=== PATIENT | female | born 1990 | race Two or more races ===

== ENCOUNTER 2024-03-23 05:00 | Observation (INO) | payer MEDICARE, MEDICAID, SELFPAY ==
[2024-03-23 05:05] VITALS: BP 106/67; PULSE 84; RESP 16; RESP 98; TEMP 36.6
[2024-03-23 05:10] VITALS: RESP 16; TEMP 36.6; O2SAT 98; BMI 41.1
[2024-03-23 05:15] VITALS: BP 106/67; PULSE 84; PULSE 93; O2SAT 98
== END 2024-03-23 06:30 | disposition home or self-care (01) ==
PROVIDERS: Admitting Provider Specialist; Visit Provider Specialist
DX: Z34.83 Encounter for supervision of other normal pregnancy, third trimester (principal); Z3A.38 38 weeks gestation of pregnancy
CPT/HCPCS: 59025; 59899; G0378

== ENCOUNTER 2024-03-25 21:59 | Inpatient (IN) | payer MEDICARE, MEDICAID, SELFPAY ==
[2024-03-25 22:08] VITALS: BP 108/70; PULSE 78; RESP 17; RESP 99; TEMP 36.8
[2024-03-25 22:27] VITALS: BMI 40.0
[2024-03-25 22:38] VITALS: BP 131/72; PULSE 74
[2024-03-25 23:02] LABS: Basophils % (Auto) 0 % (0-2.5); Eosinophils # (Auto) 0.1 Thou/mm3 (0.0-0.5); Eosinophils % (Auto) 1 % (0-10); Hematocrit 35.7 % (36.0-46.0); Hemoglobin 12.3 g/dL (12.0-16.0); Immature Granulocytes % (Auto) 0 % (0-0); Immature Granulocytes Auto 0.03 Thou/mm3 (0.00-0.00); Lymphocytes # (Auto) 1.6 Thou/mm3 (1.0-4.8); Lymphocytes % (Auto) 13 % (10-50); Mean Corpuscular HGB Conc 34.5 g/dl (31.0-37.0); Mean Corpuscular Hemoglobin 30.4 pg (25.0-35.0); Mean Corpuscular Volume 88 fL (80-100); Monocytes # (Auto) 0.9 Thou/mm3 (0.0-0.8); Monocytes % (Auto) 7 % (0-12); Neutrophils # (Auto) 9.9 Thou/mm3 (1.8-7.7); Neutrophils % (Auto) 79 % (37-80); Nucleated Red Blood Cell % 0 /100 WBC (0); Platelet Count 182 Thou/mm3 (140-440); RDW Standard Deviation 42.5 fL (36.4-46.3); Red Blood Count 4.05 Miln/mm3 (4.00-5.20); White Blood Count 12.4 Thou/mm3 (3.6-11.0)
--- NOTE | 2024-03-25 23:15 | PD.LDHP ---
Documentation for date of: 03/25/24 OB Labor/Induct. HPI History of Present Illness History of present illness: H and P dictated on the STAT line #9 in Nuance : [id number] Meds Home Medications and Allergies Home Medications ?Medication ?Instructions ?Recorded ?Confirmed ?Type vitamins no.144-folic 1 tab PO DAILY 04/01/20 03/23/24 History acid 400 mcg chewable tablet () Allergies Allergy/AdvReac Type Severity Reaction Status Date / Time No Known Allergies Allergy Verified 03/23/24 05:41 OB Exam Physical Exam Vital signs: Temp Pulse Resp BP 98.2 F 74 17 131/72 H 03/25/24 22:08 03/25/24 22:38 03/25/24 22:08 03/25/24 22:38 OB Results Labs 03/25/24 22:35 Labs: Short CBC 03/25/24 Range/Units 22:35 WBC 12.4 H (3.6-11.0) Thou/mm3 Hgb 12.3 (12.0-16.0) g/dL Hct 35.7 L (36.0-46.0) % Plt Count 182 (140-440) Thou/mm3
[2024-03-25 23:26] VITALS: BP 125/79; PULSE 76
[2024-03-25 23:58] VITALS: BP 122/73; PULSE 96
[2024-03-26] VITALS (27 sets, daily range): BP systolic 104–146; BP diastolic 64–88; PULSE 56–95; RESP 14–28; TEMP 36.3–37.1; O2SAT 97–100
[2024-03-26] MEDS: OXYTOCIN in NS 20 units 20 UNIT/1,000 ML BAG 125 UNIT IV ×3 (00:02→21:19)
[2024-03-26] MEDS: BENZO/LANO/ALOE (Dermoplast) 60 GM CAN 1 SPRAY TOP (00:12)
[2024-03-26 01:01] LABS: Syphilis Nonreactive (Nonreactive)
--- NOTE | 2024-03-26 02:20 | SUR.PHASEI ---
Addendum entered by Kaylie Díaz RN 03/26/24 03:45: bakri balloon in place with JOSE drain Original Note: 0220: pt received from OR via yoana. received report from KALEY Ernandez and Dr. Turner. pt alert and oriented x3. no c/o pain or discomfort. no s/s of resp. distress or discomfort. pelayo cath in place with light yellow urine out. bacari balloon in place with JOSE drain. minimal amount of bleeding noted from leandro-pad.
--- NOTE | 2024-03-26 02:32 | PD.LDDS ---
DS: Providers Provider Date of admission: 03/25/24 22:28 Primary care physician: Physician No Primary/Family Admitting Provider: Theo Myers MD Attending Provider on Admission: Theo Myers MD Attending Provider on DC: Theo Myers MD Discharging Provider: Theo Myers MD DS: Diagnosis Problem List Completed Was Problem List Reviewed/Reconciled?: Yes Summary/Hosp Course Brief History: H and P dictated on the STAT line #9 in Nuance : [id number] Peripartum Data Procedures: Procedures Operation Date: 03/26/24 01:45 Actual Procedure Side Surgeon p Dilatation & Curettage Theo Myers MD Time Spent with Patient Time attestation: Total time spent providing and/or coordinating discharge services: Exam Vital Signs Temp Pulse Resp BP 98.4 F 68 17 116/68 03/26/24 01:10 03/26/24 01:06 03/26/24 01:10 03/26/24 01:06 Discharge Plan Plan Patient Disposition: HOME (Self Care) Patient condition on transfer: Stable Prescriptions/Referrals Prescriptions/Med Rec: New ibuprofen 600 mg tablet 600 mg PO Q6H PRN (Reason: pain) Qty: 30 0RF potassium chloride [K-Tab] 20 mEq tablet extended release 20 meq PO BID Qty: 30 0RF magnesium oxide 400 mg (241.3 mg magnesium) tablet 400 mg PO QDAY Qty: 7 0RF No Action 400 mcg Tablet,Chewable 1 tab PO DAILY Referrals: No Primary/Family,Physician [Primary Care Provider] - Patient/Caregiver Discharge Instructions Discharge Activity: activity as tolerated Print Language: Belarusian Stand Alone Forms: Michelle Award Info., Patient Portal Info Letter Discharge Order Discharge Orders: Discharge (Routine); Ordered 03/28/24 Ordered By: Theo Myers Planned Discharge Date 03/28/24
--- NOTE | 2024-03-26 02:37 | ESOP_ITS ---
RE: LIS GARCIA : 1990 DATE OF OPERATION: 03/26/2024 PREOPERATIVE DIAGNOSIS: Retained placenta, status post normal vaginal delivery. POSTOPERATIVE DIAGNOSES: 1. Retained placenta, status post normal vaginal delivery. 2. Uterine atony. 3. Hemorrhage PROCEDURE PERFORMED: 1. Manual placental removal. 2. Uterine curettage. 3. Bakri balloon placement. SURGEON: Theo Myers DO EMOTIONALLY IMPAIRED TEACHER: None. ANESTHESIA: General. ANESTHESIOLOGIST: Dr. Turner. ESTIMATED BLOOD LOSS: 1200 mL COMPLICATIONS: hemorrhage. PATHOLOGY: Placenta. FINDINGS: A firmly adherent posterior intrauterine placenta, removed manually, complete and intact. Uterine atony with significant profuse bleeding after placental removal, requiring Bakri balloon placement with 400 mL of normal saline. DESCRIPTION OF PROCEDURE: After appropriate informed consent was obtained, the patient was made aware of the risks, complications, alternatives, and benefits of the proposed procedure, she was taken to the operating room where she underwent induction of general anesthesia. She was placed in the dorsal lithotomy position. She was prepped and draped in the usual sterile fashion. Timeout was performed. The patient underwent exam under anesthesia. The placenta was manually removed, complete and intact. The uterine cavity was curetted with a banjo curette. The patient despite uterotonics, had significant atony of the uterus with profuse bleeding, requiring placement of a Bakri balloon. The Bakri balloon was placed in the uterine cavity with 400 mL of saline and this served to firm the uterus and prevent the excessive bleeding. Two units of packed red blood cells were ordered intraoperatively. The patient was reversed from general anesthesia and after More catheter was placed, Bakri balloon tubing was affixed to JOSE drain. The patient was reversed from general anesthesia and transferred to the recovery room in stable condition. She tolerated the procedure well. Counts were correct. DT: 02:21:11 TT: 02:35:00 Ref: [id number] - TID: [id number] MTDD
--- NOTE | 2024-03-26 02:50 | SUR.PHASEI ---
0250: tolerated ice chips well.
--- NOTE | 2024-03-26 03:11 | SUR.PHASEI ---
Report given to KALEY Martini
--- NOTE | 2024-03-26 03:28 | SUR.PHASEI ---
0328: pt transfer to room 463 via bed. pt alert and oriented x3. no c/o pain or discomfort. no s/s of resp. distress or discomfort. pelayo cath in place with light yellow urine out. bakri balloon in place with JOSE drain. scant amount of bleeding noted from leandro-pad.
--- NOTE | 2024-03-26 04:20 | PC.NURSE ---
@0310 report received from KALEY Lott in OR on pt status. Per KALEY Lott, pt underwent manual extraction of placenta in OR. Pt hemorrhaged and had a total EBL of 1500 post-op. Pt had bakri balloon placed in to prevent further bleeding. Per Kaylie, KALEY pt will need 2nd bag of blood once back in unit. Received pt to floor around 0350, pt AxOx4. Pt states she started coughing postop, with feeling of need to expectorate mucus. BP diastolic slightly elevated around 130s, systolic WNL. Other vital signs WNL pre-blood transfusion and 30mins after. Pt does not c/o adverse effects.
[2024-03-26] MEDS: CEFAZOLIN IV (08:16)
[2024-03-26] MEDS: SODIUM CHLORIDE 0.9% IV (08:16)
[2024-03-26] MEDS: METHYLERGONOVINE 0.2 MG TABLET PO ×3 (08:17→21:19)
[2024-03-26 10:26] LABS: Basophils % (Auto) 0 % (0-2.5); Eosinophils % (Auto) 0 % (0-10); Hematocrit 34.1 % (36.0-46.0); Hemoglobin 11.8 g/dL (12.0-16.0); Immature Granulocytes % (Auto) 1 % (0-0); Immature Granulocytes Auto 0.11 Thou/mm3 (0.00-0.00); Lymphocytes % (Auto) 5 % (10-50); Mean Corpuscular HGB Conc 34.6 g/dl (31.0-37.0); Mean Corpuscular Hemoglobin 29.6 pg (25.0-35.0); Mean Corpuscular Volume 86 fL (80-100); Monocytes # (Auto) 0.5 Thou/mm3 (0.0-0.8); Monocytes % (Auto) 3 % (0-12); Neutrophils # (Auto) 17.1 Thou/mm3 (1.8-7.7); Neutrophils % (Auto) 91 % (37-80); Nucleated Red Blood Cell % 0 /100 WBC (0); Platelet Count 153 Thou/mm3 (140-440); RDW Standard Deviation 41.4 fL (36.4-46.3); Red Blood Count 3.99 Miln/mm3 (4.00-5.20); White Blood Count 18.7 Thou/mm3 (3.6-11.0)
--- NOTE | 2024-03-26 13:18 | ESPR_ITS ---
RE: LIS GARCIA : 1990 DATE OF SERVICE: 03/26/2024 SUBJECTIVE: Postop day #1, day #1. The patient denies any problem or complaint. She has got adequate urine output with More catheter in place. She is draining bloody fluid through the Bakri balloon drainage port in amounts that are not excessive. She denies any vaginal bleeding. She denies any dizziness or lightheadedness. She denies any chest pain, palpitations, shortness of breath or lower extremity pain or swelling. OBJECTIVE: Vital Signs: Blood pressure 118/75, heart rate 60, respirations 18, temperature is 98.2. HEENT: Oropharynx and sclerae are clear. Lungs: Clear to auscultation bilaterally. Heart: Regular rate and rhythm. Abdomen: Fundus is firm. Bakri balloon in place. No vaginal bleeding noted. More catheter draining clear yellow urine. Extremities: Nontender or edema. ASSESSMENT AND PLAN: 1. Postop day #1, status post exam under anesthesia, manual placenta removal, uterine curettage and placement of Bakri balloon for uterine atony and hemorrhage, status post transfusion of 2 units packed red blood cells. Plan check post transfusion CBC. Continue prophylactic antibiotics to prevent endometritis as long as Bakri balloon is in place. Plan to remove Bakri balloon tomorrow morning. 2. day #1, status post spontaneous vaginal delivery. I discussed with the patient the nature of her condition, intraoperative findings, expectation for recovery. All questions answered. DT: 11::18 TT: 13:07:00 Ref: [id number] - TID: [id number]
[2024-03-26] MEDS: ceFAZolin/D5W 2 GM IV 2 GM/100 ML BAG IV ×2 (14:34→22:42)
--- NOTE | 2024-03-26 15:31 | PC.NURSE ---
[address] Myers during rounds, stated to continue iv pitocin 125ml/hr until tomorrow morning when he comes in to remove the bakri balloon.
--- NOTE | 2024-03-26 17:54 | PC.NURSE ---
[address] Myers to inform him of patient feeling tingling and numbness in both hands, causing contraction of fingers in right hand. Dr ordered cbc, comprehensive metabolic panel, and nothing to be administered into her right forearm iv. No mental changes noted in patient, vitals stable.
[2024-03-26 18:58] LABS: Basophils % (Auto) 0 % (0-2.5); Eosinophils % (Auto) 0 % (0-10); Hematocrit 31.3 % (36.0-46.0); Hemoglobin 10.9 g/dL (12.0-16.0); Immature Granulocytes % (Auto) 0 % (0-0); Immature Granulocytes Auto 0.04 Thou/mm3 (0.00-0.00); Lymphocytes # (Auto) 2.1 Thou/mm3 (1.0-4.8); Lymphocytes % (Auto) 13 % (10-50); Mean Corpuscular HGB Conc 34.8 g/dl (31.0-37.0); Mean Corpuscular Hemoglobin 30.3 pg (25.0-35.0); Mean Corpuscular Volume 87 fL (80-100); Monocytes # (Auto) 0.8 Thou/mm3 (0.0-0.8); Monocytes % (Auto) 5 % (0-12); Neutrophils # (Auto) 13.3 Thou/mm3 (1.8-7.7); Neutrophils % (Auto) 82 % (37-80); Nucleated Red Blood Cell % 0 /100 WBC (0); Platelet Count 142 Thou/mm3 (140-440); RDW Standard Deviation 42.4 fL (36.4-46.3); White Blood Count 16.3 Thou/mm3 (3.6-11.0)
[2024-03-26 19:25] LABS: Alanine Aminotransferase 10 U/L (10-49); Albumin, Serum 3.1 gm/dL (3.5-5.0); Albumin/Globulin Ratio 1.3 (1.2-2.2); Alkaline Phosphatase 126 U/L (46-116); Anion Gap 10 (7-16); Aspartate Amino Transferase 29 U/L (0-34); BUN/Creatinine Ratio 10 Ratio (12-20); Bilirubin,Total 0.4 mg/dL (0.3-1.2); Blood Urea Nitrogen < 5 mg/dL (9-23); Calcium 7.9 mg/dL (8.3-10.6); Calcium (Corrected) 8.6 mg/dL (8.5-10.1); Carbon Dioxide 24.9 mMol/L (20.0-31.0); Chloride 105 mMol/L (98-107); Creatinine (Component) 0.5 mg/dL (0.6-1.3); Globulin 2.4 gm/dL (2.3-3.5); Glucose 83 mg/dL (74-106); Magnesium 1.2 mg/dL (1.6-2.6); Osmolality,Calculated 275 (275-295); Sodium 140 mMol/L (136-145); Total Protein 5.5 gm/dL (5.7-8.2); eGFR > 60 See Note
[2024-03-26 19:27] LABS: Potassium 2.4 mMol/L (3.4-5.1)
--- NOTE | 2024-03-26 19:59 | PD.LDDELS ---
Data (Larios) Data Hx Section: No : 3 Para: 2 Term: 1 : 0 : 1 Delivery Data (Larios) Labor Data ROM Date: 03/25/24 ROM Time: 23:07 Rupture Type: AROM Amniotic Fluid: Thin Meconium Delivery Data EDC: 04/01/24 EDC calculated by:: LMP/early US confirmation Labor Onset Stage 1 Date: 03/25/24 Labor Onset Stage 1 Time: 11:00 Labor Onset Stage 2 Date: 03/25/24 Labor Onset Stage 2 Time: 23:53 Delivery Date: 03/26/24 Delivery Time: 23:59 Gestational age (weeks): 39 Gestational age (days): 0 Placenta Delivery Date: 03/26/24 Placenta Delivery Time: 02:05 Delivered by: Theo Myers Delivery nurse: Melyssa Salas Other staff at delivery: 2nd Nurse Other staff at delivery: Maria Luisa Cobb Delivery Method Delivery: Vaginal Delivery Type: Spontaneous Presentation: Vertex Position: OA Anesthesia Type Primary Anesthesia: None Placenta Placenta Delivery: Manual Placenta Cultures Obtained: No Placenta Sent for Examination: Yes Cord Sample: Cord Blood Obtained EBL Estimated blood loss (ml): 300 Umbilical Cord Placenta/Cord Complication: Retained Placenta Umbilical Vessels: 3 Additional Procedures Exam under anesthesia Manual placental removal Uterine curettage Placement of Bakri Balloon. Complications Complications: Hemorrhage Uterine atony. [place] Data (Larios) [place] Data Gender: Male Weight Grams: 3050 1 Minute Total: 9 5 Minute Total: 9
--- NOTE | 2024-03-26 20:08 | EKG_ITS ---
[facility] Test Date: 2024-03-26 Pat Name: LIS [facility]ARCIA [facility] Electronic Assembler: JESUS ALBERTO : 1990 Requested By: Theo Felix Order Number: [id number] Reading MD: Theo Felix Measurements Intervals Natalia Rate: 67 P: 40 IL: 171 QRS: -19 QRSD: 90 T: 5 QT: 379 QTc: 400 Interpretive Statements SINUS RHYTHM No previous ECG available for comparison /store/S0/[id number]/ecg/[id number].pdf
--- NOTE | 2024-03-26 20:14 | PD.LDPPPRG ---
Subjective Subjective Interval history: Complains of muscle spasms in left hand. Denies chest pain or palpitations or shortness of breath or dizziness or lightheadedness. K+ 2.4 and Magnesium 1.2. Exam Vital Signs Temp Pulse Resp BP Pulse Ox O2 Del Method O2 Flow Rate 98.4 F 63 16 112/72 100 Nasal Cannula 4 03/26/24 15:28 03/26/24 15:28 03/26/24 15:28 03/26/24 15:28 03/26/24 15:28 03/26/24 15:28 03/26/24 15:28 Routine Respiratory Exam Comments: CTA B/L Routine Cardiovascular Exam Comments: RRR Routine Abdominal Exam Comments: Fundus firm Bakri balloon in place Nontender Routine Extremities Exam Comments: Nontender Routine Psychiatric Exam Comments: alert and oriented Objective Labs 03/26/24 18:31 03/26/24 18:31 Labs: Laboratory Results - last 24 hr 03/25/24 03/26/24 03/26/24 22:35 09:56 18:31 WBC 12.4 H 18.7 H D 16.3 H RBC 4.05 3.99 L 3.60 L Hgb 12.3 11.8 L 10.9 L Hct 35.7 L 34.1 L 31.3 L MCV 88 86 87 MCH 30.4 29.6 30.3 MCHC 34.5 34.6 34.8 RDW Std Deviation 42.5 41.4 42.4 Plt Count 182 153 142 Neut % (Auto) 79 91 H 82 H Lymph % (Auto) 13 5 L 13 [place] % (Auto) 7 3 5 Eos % (Auto) 1 0 0 Baso % (Auto) 0 0 0 Neut # (Auto) 9.9 H 17.1 H 13.3 H Lymph # (Auto) 1.6 1.0 2.1 [place] # (Auto) 0.9 H 0.5 0.8 Eos # (Auto) 0.1 0.0 0.0 Baso # (Auto) 0.0 0.0 0.0 Immature Gran # (Auto) 0.03 H 0.11 H 0.04 H Absolute Nucleated RBC 0.00 0.00 0.00 Immature Gran % 0 1 H 0 Nucleated RBC % 0 0 0 Sodium 140 Potassium 2.4 L* Chloride 105 Carbon Dioxide 24.9 Anion Gap 10 BUN < 5 L Creatinine 0.5 L Estim Creat Clear Calc 183.0 eGFR > 60 BUN/Creatinine Ratio 10 L Glucose 83 Calculated Osmolality 275 Calcium 7.9 L Corrected Calcium 8.6 Magnesium 1.2 L Total Bilirubin 0.4 AST 29 ALT 10 Alkaline Phosphatase 126 H Total Protein 5.5 L Albumin 3.1 L Globulin 2.4 Albumin/Globulin Ratio 1.3 Syphilis Serology Nonreactive Blood Type A Positive Antibody Screen NEGATIVE Crossmatch See Detail Blood Bank Wristband ID Yes Assessment & Plan Problem List (1) Hypokalemia: Status: Acute Assessment and plan: Potassium replacement : KCL 40 mEq po x one and KCL 30 mEq IV (via 10 mEq per hour x 3) academic success coordinator for Cardiac Arrhythmias in Telemetry Unit Repeat K level in 4 hours. (2) Hypomagnesemia: Status: Acute Assessment and plan: Magnesium sulfate 2g IV Check Magnesium level in 4 hours. Time Spent With Patient Time: Total time spent is greater than 50% in coordination of care (as documented) at patient's floor/unit and/or counseling patient:
[2024-03-26] MEDS: POTASSIUM CHLORIDE 20 mEq TABCR 40 MEQ PO (20:39)
[2024-03-26] MEDS: Magnesium Sulfate 2 GM Ivpb 2 GM/50 ML BAG IV (21:04)
[2024-03-26] MEDS: POTASSIUM CHL 10 mEq IVPB 10 MEQ/100 ML BAG 100 MEQ IV ×2 (22:21→23:09)
--- NOTE | 2024-03-26 22:30 | PC.NURSE ---
patient arrived to floor, alert and oriented, on strict bedrest, with bakri balloon with ami drain with minimal drainage of blood noted. pitocin running and magnesium.
[2024-03-27] VITALS: BP 115/68; PULSE 67; RESP 19; TEMP 36.6; O2SAT 97
[2024-03-27] MEDS: POTASSIUM CHL 10 mEq IVPB 10 MEQ/100 ML BAG 100 MEQ IV ×2 (00:13→23:49)
[2024-03-27 01:03] LABS: Magnesium 1.6 mg/dL (1.6-2.6); Potassium 2.9 mMol/L (3.4-5.1)
--- NOTE | 2024-03-27 01:20 | PC.NURSE ---
notified Dr. Myers of patients potassium 2.9. new orders for potassium replacement and am labs and to consult hospitalist.
--- NOTE | 2024-03-27 01:29 | PC.NURSE ---
notified Dr. Mederos of [facility] on this patient
--- NOTE | 2024-03-27 01:44 | PD.RESCONSUL ---
HPI Data of Consult Requesting Physician: Theo Myers MD Admitting Provider: Theo Myers MD Attending Provider: Theo Myers MD Primary Care Provider: Physician No Primary/Family Consult Narrative Reason for consult: Hypokalemia History of present illness: Patient is a 33-year-old female now A1 with no significant past medical history who was admitted to L&D on 03/25/2024. She had a normal spontaneous vaginal delivery of a male single at 39 weeks on 03/25/2024 at 23:59. Delivery was complicated by retained placenta and uterine atony. She underwent manual extraction of placenta, uterine curettage, and placement of Bakri balloon in the OR under anesthesia. Patient had hemorrhage with estimated blood loss of 1200 mL. She received 1 unit PRBC. While recovering in the L&D unit patient started experiencing numbness, tingling, and cramps of bilateral hands, CMP was ordered and patient was found to have hypokalemia of 2.4. Patient was transferred to the Telemetry unit for cardiac monitoring and electrolyte repletion. Patient has received 40 mEq PO, 30 mEq IV K and 2 gm IV Mag prior to consult. Patient has the Bakri balloon and JOSE drain in place that is planned to be removed tomorrow. Patient at this time is denying any pain, and reports improvement in numbness, tingling, and cramps. The hospitalist team was consulted for further management of hypokalemia. Vitals at this time include BP 115/68, HR 70s in normal sinus rhythm, RR 15, Temp 97.9, saturating 99% on room air. Labs include potassium 2.4->2.9, WBC 16.3, Hgb 10.9 Review of Systems Review of systems otherwise negative except what is mentioned above. cc:: cc: Theo Myers MD Past Medical History Past Medical History Comments PMH COMMENT: Past Medical History: None Family History: No known family history of delivery complications Surgical History: Appendectomy age 8 Social History: Denies history of tobacco use, denies current alcohol use, prior history of marijuana use but stopped before Current Medications: vitamin Allergies: No known drug allergies Exam Vital Signs Temp Pulse Resp BP Pulse Ox O2 Del Method O2 Flow Rate 97.9 F 67 19 115/68 97 Room Air 4 03/27/24 00:00 03/27/24 00:00 03/27/24 00:00 03/27/24 00:00 03/27/24 00:00 03/27/24 00:00 03/26/24 15:28 Narrative Exam Physical Exam General: Asleep, but arousable to voice, and in no acute distress. Conversational and non-toxic appearing. HEENT: Normocephalic, atraumatic, mucous membranes moist. Heart: Regular rate and rhythm, no murmurs. Lungs: Clear to auscultation with no wheezing or crackles. Abdomen: Soft, distended but nontender, positive bowel sounds. ?No guarding or rebound tenderness. : JOSE drain in place with approximately 15 mL of serosanguinous fluid output in about 6 hours. Neurologic: Alert and oriented x3, no gross neurological deficit, and patient able to move all 4 extremities. Extremities: No edema. Skin: No rash or ecchymoses. Results Labs 03/26/24 18:31 03/27/24 00:19 Labs: Short CBC 03/26/24 03/26/24 Range/Units 09:56 18:31 WBC 18.7 H D 16.3 H (3.6-11.0) Thou/mm3 Hgb 11.8 L 10.9 L (12.0-16.0) g/dL Hct 34.1 L 31.3 L (36.0-46.0) % Plt Count 153 142 (140-440) Thou/mm3 BMP 03/26/24 03/27/24 18:31 00:19 Sodium 140 Potassium 2.4 L* 2.9 L D Chloride 105 Carbon Dioxide 24.9 BUN < 5 L Creatinine 0.5 L Glucose 83 Calcium 7.9 L Liver Function 03/26/24 Range/Units 18:31 Total Bilirubin 0.4 (0.3-1.2) mg/dL AST 29 (0-34) U/L ALT 10 (10-49) U/L Alkaline Phosphatase 126 H (46-116) U/L Albumin 3.1 L (3.5-5.0) gm/dL Quality Measures Quality Measures VTE prophylaxis Medications Home Medications and Allergies Home Medications ?Medication ?Instructions ?Recorded ?Confirmed ?Type vitamins no.144-folic 1 tab PO DAILY 04/01/20 03/25/24 History acid 400 mcg chewable tablet () Allergies Allergy/AdvReac Type Severity Reaction Status Date / Time No Known Allergies Allergy Verified 03/26/24 02:32 Visit Medications Acetaminophen (Acetaminophen 325 Mg Tablet) 325 mg PO Q4HR PRN PRN Reason: Patient rated pain 1 to 2 Stop: 04/25/24 06:28 Acetaminophen (Acetaminophen 325 Mg Tablet) 650 mg PO Q6HR PRN PRN Reason: Patient rated pain of 3 Stop: 04/25/24 06:28 Benzocaine (Benzo/Lano/Aloe (Dermoplast) 60 Gm Can) 1 spray TOP PRN PRN PRN Reason: PERINEAL DISCOMFORT Stop: 04/24/24 22:27 Last Admin: 03/26/24 00:12 Dose: 1 can Cyclobenzaprine HCl (Cyclobenzaprine 5 Mg Tablet) 5 mg PO TID PRN PRN Reason: MUSCLE SPASMS Stop: 04/25/24 17:58 Diphenoxylate HCl/Atropine (Diphenoxylate/Atrop Sulf 1 Tab) 1 tab PO Q6HR PRN PRN Reason: Diarrhea Stop: 04/25/24 02:21 Diphtheria/Tetanus/Acell Pertussis (Diphth,Pertuss(Acell),Tet Vac 0.5 Ml Vial) 0.5 ml IMi X1 PRN PRN Reason: SEE COMMENTS Tranexamic Acid (Tranexamic Acid Ivpb) 1,000 mg in 100 mls @ 200 mls/hr IV PRNMRX1 PRN PRN Reason: BLEEDING Oxytocin/Sodium Chloride (Pitocin 20 Units In Ns) 20 unit in 1,000 mls @ 125 mls/hr IV .Q8H [facility] Stop: 04/24/24 22:29 Last Admin: 03/26/24 21:19 Dose: 125 mls/hr Promethazine HCl 12.5 mg/ (Sodium Chloride) 50.5 mls @ 2.5 mls/min IM X1 PRN PRN Reason: NAUSEA OR VOMITING Lactated Ringer's (Lactated Ringers) 1,000 mls @ 100 mls/hr IV .Q10H [facility] Stop: 04/25/24 18:14 Cefazolin Sodium (Ancef 2gm Ivpb) 2 gm in 100 mls @ 200 mls/hr IV Q8HR [facility] Stop: 04/02/24 08:14 Last Infusion: 03/26/24 23:18 Dose: Infused Magnesium Sulfate (Magnesium Sulfate Ivpb) 4 gm in 50 mls @ 12.5 mls/hr IV X1 ONE Stop: 03/27/24 05:34 Potassium Chloride (Kcl Ivpb) 100 mls @ 100 mls/hr IV Q1HR [facility] Stop: 03/27/24 03:59 Magnesium Hydroxide (Milk Of Magnesia Susp 30 Ml Udc) 30 ml PO PRNMRX1 PRN PRN Reason: CONSTIPATION Stop: 04/25/24 06:28 Measles/Mumps/Rubella Vaccine Live (Measles, Mumps & Rubella Vacc 0.5 Ml Vial) 0.5 ml SCi X1 PRN PRN Reason: if non-immune or equivocal Methylergonovine Maleate (Methylergonovine 0.2 Mg Tablet) 0.2 mg PO TID UBALDO Stop: 03/27/24 05:00 Last Admin: 03/26/24 21:19 Dose: 0.2 mg Methylergonovine Maleate (Methylergonovine Inj 0.2 Mg/Ml Vial) 0.2 mg IM Q6HR PRN PRN Reason: Excessive bleeding Stop: 04/02/24 06:52 Methylergonovine Maleate (Methylergonovine 0.2 Mg Tablet) 0.2 mg PO Q6HR PRN PRN Reason: Excessive bleeding Stop: 04/02/24 06:28 Misoprostol (Misoprostol 200 Mcg Tablet) 800 mcg TN X1 PRN PRN Reason: BLEEDING Ondansetron HCl (Ondansetron Inj 2 Mg/Ml Inj 2 Ml) 4 mg IV X1 PRN PRN Reason: NAUSEA OR VOMITING Ondansetron HCl (Ondansetron Inj 2 Mg/Ml Inj 2 Ml) 4 mg IV Q6H PRN PRN Reason: NAUSEA OR VOMITING Stop: 04/25/24 06:28 Oxytocin (Oxytocin Inj 10 Unit/Ml Vial) 10 unit IM X1 PRN PRN Reason: After placenta delivers Simethicone (Simethicone 80 Mg Chew) 80 mg PO Q4HR PRN PRN Reason: GAS Stop: 04/25/24 06:28 Discontinued Medications Fentanyl Citrate (Fentanyl Cit Inj 50 Mcg/Ml Amp 2ml) 100 mcg IV Q1HR PRN PRN Reason: PAIN SCALE 4-6 (Moderate Stop: 03/30/24 22:27 Fentanyl Citrate (Fentanyl Cit Inj 50 Mcg/Ml Amp 2ml) 50 mcg IV Q5MIN PRN PRN Reason: PAIN SCALE 4-10(Mod-Sev Lactated Ringer's (Lactated Ringers) 500 mls @ 999 mls/hr IV .Q31M PRN PRN Reason: HR tracing (Per Policy) Stop: 04/24/24 22:27 Sodium Chloride (Ns) 1,000 mls @ 100 mls/hr IV .Q10H [facility] Stop: 04/24/24 22:29 Cefazolin Sodium (Ancef 2gm Ivpb) 2 gm in 100 mls @ 100 mls/hr IV X1 ONE Stop: 03/26/24 01:37 Oxytocin/Sodium Chloride (Pitocin 20 Units In Ns) 20 unit in 1,000 mls @ 125 mls/hr IV .Q8H [facility] Stop: 03/26/24 22:28 Cefazolin Sodium 2 gm/ Sodium (Chloride) 100 mls @ 100 mls/hr IV Q8HR [facility] Stop: 03/27/24 02:00 Cefazolin Sodium 2 gm/ Sodium (Chloride) 100 mls @ 100 mls/hr IV Q8HR [facility] Stop: 04/02/24 08:14 Last Infusion: 03/26/24 22:34 Dose: Infused Potassium Chloride (Kcl Ivpb) 10 meq in 100 mls @ 100 mls/hr IV Q1H [facility] Stop: 03/26/24 22:42 Last Infusion: 03/27/24 01:39 Dose: Infused Magnesium Sulfate (Magnesium Sulfate Ivpb) 2 gm in 50 mls @ 25 mls/hr IV X1 ONE Stop: 03/26/24 21:43 Last Infusion: 03/26/24 23:13 Dose: Infused Potassium Chloride (Kcl Ivpb) 100 mls @ 50 mls/hr IV Q2HR [facility] Stop: 03/27/24 05:59 Ibuprofen (Ibuprofen Tab 400 Mg Tablet) 800 mg PO X1 PRN PRN Reason: uterine cramping Lidocaine HCl (Lidocaine Hcl 1% 20 Ml Vial) 20 ml INFL X1 ONE Stop: 03/25/24 22:29 Methylergonovine Maleate (Methylergonovine Inj 0.2 Mg/Ml Vial) 0.2 mg IM X1 PRN PRN Reason: Excessive Bleeding Mineral Oil (Mineral Oil 30 Ml Udc) 30 ml TOP PRN PRN PRN Reason: To perineum for delivery. Stop: 04/24/24 22:27 Potassium Chloride (Potassium Chloride 20 Meq Tabcr) 40 meq PO X1 ONE Stop: 03/26/24 19:43 Last Admin: 03/26/24 20:39 Dose: 40 meq Potassium Chloride (Potassium Chloride 20 Meq Tabcr) 40 meq PO X1 ONE Stop: 03/27/24 01:39 Assessment & Plan Plan 33-year-old female A1 with no significant past medical history who was admitted to L&D on 03/25/2024 underwent normal spontaneous vaginal delivery of a male single at 39 weeks, which was complicated by retained placenta requiring manual extraction, uterine curettage, uterine atony, and hemorrhage. On 03/26/2024 patient was found to have potassium 2.4 and hospitalist team was consulted for continued management of hypokalemia and cardiac monitoring. #Hypokalemia #Hypomagnesemia On labs 03/26/2024 K 2.4, Mag 1.2, repeat K 2.9 and Mag 1.6 Patient has received so far 2 gm IV magnesium, 40 mEq PO potassium and 30 mEq IV potassium. Telemetry shows normal sinus rhythm with rate in the 70s. -Ordered additional 2 gm IV Mag -Ordered additional 20 mEq IV K -Ordered additional 40 mEq PO K -Repeat CMP and Mag in AM -Continuous telemetry monitoring # day 1 #Postoperative day 1 s/p manual placental removal, uterine curettage, and Bakri balloon placement #Acute blood loss anemia -Continue management per reworker Thank you for allowing us to participate in the care of this patient. Patient plan of care was discussed with the attending physician, Dr. Mederos. Antoinette Matias, PGY-2 Attending Provider Attestation/Addendum Pt was evaluated and plan formulated together with the housestaff team. I have reviewed the residents note above and agree with most of its content. Please refer to the residents note for additional details.
[2024-03-27] MEDS: POTASSIUM CHLORIDE 20 mEq TABCR 40 MEQ PO (01:48)
[2024-03-27] MEDS: POTASSIUM CHL 10 mEq IVPB 100 ML 100 MEQ IV ×2 (01:56→02:46)
[2024-03-27] MEDS: Magnesium Sulfate 2 GM Ivpb 2 GM/50 ML BAG IV (01:57)
[2024-03-27 04:00] VITALS: BP 117/69; PULSE 69; RESP 19; TEMP 36.4; O2SAT 98
[2024-03-27 05:23] VITALS: BMI 39.8
[2024-03-27] MEDS: ceFAZolin/D5W 2 GM IV 2 GM/100 ML BAG IV (05:28)
[2024-03-27 06:06] LABS: Basophils % (Auto) 0 % (0-2.5); Eosinophils # (Auto) 0.1 Thou/mm3 (0.0-0.5); Eosinophils % (Auto) 1 % (0-10); Hematocrit 30.4 % (36.0-46.0); Hemoglobin 10.4 g/dL (12.0-16.0); Immature Granulocytes % (Auto) 0 % (0-0); Immature Granulocytes Auto 0.05 Thou/mm3 (0.00-0.00); Lymphocytes # (Auto) 2.4 Thou/mm3 (1.0-4.8); Lymphocytes % (Auto) 22 % (10-50); Mean Corpuscular HGB Conc 34.2 g/dl (31.0-37.0); Mean Corpuscular Hemoglobin 30.3 pg (25.0-35.0); Mean Corpuscular Volume 89 fL (80-100); Monocytes # (Auto) 0.6 Thou/mm3 (0.0-0.8); Monocytes % (Auto) 5 % (0-12); Neutrophils % (Auto) 71 % (37-80); Nucleated Red Blood Cell % 0 /100 WBC (0); Platelet Count 139 Thou/mm3 (140-440); RDW Standard Deviation 43.4 fL (36.4-46.3); Red Blood Count 3.43 Miln/mm3 (4.00-5.20); White Blood Count 11.2 Thou/mm3 (3.6-11.0)
[2024-03-27] MEDS: OXYTOCIN in NS 20 units 20 UNIT/1,000 ML BAG 125 UNIT IV (06:20)
[2024-03-27 06:56] LABS: Alanine Aminotransferase 8 U/L (10-49); Albumin, Serum 2.9 gm/dL (3.5-5.0); Albumin/Globulin Ratio 1.4 (1.2-2.2); Alkaline Phosphatase 109 U/L (46-116); Anion Gap 10 (7-16); Aspartate Amino Transferase 21 U/L (0-34); BUN/Creatinine Ratio 10 Ratio (12-20); Bilirubin,Total 0.3 mg/dL (0.3-1.2); Blood Urea Nitrogen < 5 mg/dL (9-23); Calcium 7.5 mg/dL (8.3-10.6); Calcium (Corrected) 8.4 mg/dL (8.5-10.1); Carbon Dioxide 22.1 mMol/L (20.0-31.0); Chloride 108 mMol/L (98-107); Creatinine (Component) 0.5 mg/dL (0.6-1.3); Globulin 2.1 gm/dL (2.3-3.5); Glucose 69 mg/dL (74-106); Osmolality,Calculated 274 (275-295); Potassium 3.4 mMol/L (3.4-5.1); Sodium 140 mMol/L (136-145); eGFR > 60 See Note
[2024-03-27 08:00] VITALS: BP 131/87; PULSE 69; RESP 18; TEMP 36.1; O2SAT 95
[2024-03-27] MEDS: POTASSIUM CHLORIDE 20 mEq TABCR PO (08:25)
--- NOTE | 2024-03-27 10:38 | PC.NURSE ---
1000 Bakri Balloon removed by OB Lucia pt tolerated well. OB gave instructions to remove pelayo catheter after monitoring vaginal bleeding for 1 hour.
--- NOTE | 2024-03-27 12:41 | ESPR_ITS ---
RE: LIS GARCIA : 1990 DATE OF SERVICE: 03/27/2024 S: day #2, the patient denies any problems or complaints. She denies any vaginal bleeding. She denies any muscle spasms, palpitations, shortness of breath, dizziness, lightheadedness, or chest pain. She was in telemetry during the night due to potassium level of 2.4; however, she never demonstrated an arrhythmia and remained in sinus rhythm. Her potassium after supplementation returned 3.4 this morning and so she was transferred to the floor where she underwent removal of her Bakri balloon without complications. She has had no bleeding since the Bakri balloon has been removed. The patient also underwent magnesium replacement and her magnesium level is now in the normal range at 1.4. O: Vital Signs: Blood pressure is 131/87, heart rate 69, respirations 18, temperature 97.0, and pulse oximetry 95% on room air. Lungs: Clear to auscultation bilaterally. Heart: Regular rate and rhythm. Abdomen: Fundus is firm after removal of Bakri balloon. No vaginal bleeding seen. Extremities: Nontender. Laboratory Data: Hemoglobin 10.4, white blood cell count 11.2. A: 1. Postop day #1, status post manual placenta removal, uterine curettage, and placement of Bakri balloon for hemorrhage and uterine atony, status post removal of Bakri balloon, status post placement of 2 units of packed red blood cells, hemodynamically stable. Plan is monitoring for any excessive bleeding. 2. Hypokalemia with ongoing potassium replacement, potassium currently in the normal range, and the patient is asymptomatic. 3. Hypomagnesemia resolved with magnesium replacement. 4. day #2, status post spontaneous vaginal delivery. P: Monitor overnight and if stable, discharge home tomorrow. DT: 10:03:24 TT: 11:35:00 Ref: [id number] - TID: [id number]
[2024-03-27 12:50] VITALS: BP 109/77; PULSE 85; RESP 17; TEMP 36.4; O2SAT 98
--- NOTE | 2024-03-27 13:17 | ESPR_ITS ---
Documentation for date of: 03/27/24 Subjective Subjective Interval history: Patient was examined bedside this morning, she was comfortably sleeping in bed. Denied any new complaints. Internal medicine was consulted for hypokalemia today has potassium was 3.4, repleted with 20 of p.o. potassium. Exam Vital Signs Temp Pulse Resp BP Pulse Ox O2 Del Method O2 Flow Rate 97.0 F 69 18 131/87 H 95 Room Air 4 03/27/24 08:00 03/27/24 08:00 03/27/24 08:00 03/27/24 08:00 03/27/24 08:00 03/27/24 08:00 03/26/24 15:28 Narrative Exam GENERAL: Comfortable adult seen resting comfortably in hospital bed, no acute distress VITALS: All vitals were reviewed and the pulse ox is 98% on room air HEENT: Normocephalic, atraumatic. Pupils are equal and reactive. Oral mucosa is moist. NECK: Supple, nontender, no JVD CHEST: Symmetrical, atraumatic and with equal expansion ,Nontender on palpation CARDIOVASCULAR: Heart regular rhythm & rate. S1/S2. no murmur or gallop rub or extra beats. LUNGS: Clear to auscultation bilaterally with symmetrical chest rise. No laboring tachypnea or wheezing. No intercostal subcostal retraction. No rales and no rhonchi. ABDOMEN: Soft, flat, nontender to palpation, no guarding or rebound tenderness. Active and normal bowel sounds. EXTREMITIES:Moves all 4 extremities,No B/L LE edema. SKIN: Warm and dry, no jaundice or rashes noted. NEURO: Patient is AO x 3, Cranial nerves II through XII grossly intact. There is no focal neurologic deficits noted. PSYCHIATRIC: Patient is in normal mood, cooperative, no SI or HI or hallucinations. Objective Labs 03/27/24 17:56 03/28/24 05:02 Labs: Laboratory Results - last 24 hr 03/26/24 03/27/24 03/27/24 18:31 00:19 05:09 WBC 16.3 H 11.2 H D RBC 3.60 L 3.43 L Hgb 10.9 L 10.4 L Hct 31.3 L 30.4 L MCV 87 89 MCH 30.3 30.3 MCHC 34.8 34.2 RDW Std Deviation 42.4 43.4 Plt Count 142 139 L Neut % (Auto) 82 H 71 Lymph % (Auto) 13 22 Coal % (Auto) 5 5 Eos % (Auto) 0 1 Baso % (Auto) 0 0 Neut # (Auto) 13.3 H 8.0 H Lymph # (Auto) 2.1 2.4 Coal # (Auto) 0.8 0.6 Eos # (Auto) 0.0 0.1 Baso # (Auto) 0.0 0.0 Immature Gran # (Auto) 0.04 H 0.05 H Absolute Nucleated RBC 0.00 0.00 Immature Gran % 0 0 Nucleated RBC % 0 0 Sodium 140 140 Potassium 2.4 L* 2.9 L D 3.4 D Chloride 105 108 H Carbon Dioxide 24.9 22.1 Anion Gap 10 10 BUN < 5 L < 5 L Creatinine 0.5 L 0.5 L Estim Creat Clear Calc 183.0 179.0 eGFR > 60 > 60 BUN/Creatinine Ratio 10 L 10 L Glucose 83 69 L Calculated Osmolality 275 274 L Calcium 7.9 L 7.5 L Corrected Calcium 8.6 8.4 L Magnesium 1.2 L 1.6 2.0 Total Bilirubin 0.4 0.3 AST 29 21 ALT 10 8 L Alkaline Phosphatase 126 H 109 Total Protein 5.5 L 5.0 L Albumin 3.1 L 2.9 L Globulin 2.4 2.1 L Albumin/Globulin Ratio 1.3 1.4 Quality Measures Quality Measures VTE prophylaxis Assessment & Plan Assessment Current Active Medications: Generic Name Dose Route Start Last Admin Trade Name Freq PRN Reason Stop Dose Admin Acetaminophen 325 mg 03/26/24 06:29 Acetaminophen 325 Mg Tablet PO 04/25/24 06:28 Q4HR PRN Patient rated pain 1 to 2 Acetaminophen 650 mg 03/26/24 06:29 Acetaminophen 325 Mg Tablet PO 04/25/24 06:28 Q6HR PRN Patient rated pain of 3 Benzocaine 1 spray 03/25/24 22:28 03/26/24 00:12 Benzo/Lano/Aloe (Dermoplast) 60 Gm Can TOP 04/24/24 22:27 1 can PRN PRN Administration PERINEAL DISCOMFORT Cyclobenzaprine HCl 5 mg 03/26/24 17:59 Cyclobenzaprine 5 Mg Tablet PO 04/25/24 17:58 TID PRN MUSCLE SPASMS Diphenoxylate HCl/Atropine 1 tab 03/26/24 02:22 Diphenoxylate/Atrop Sulf 1 Tab PO 04/25/24 02:21 Q6HR PRN Diarrhea Diphtheria/Tetanus/Acell Pertussis 0.5 ml 03/26/24 06:29 Diphth,Pertuss(Acell),Tet Vac 0.5 Ml Vial IMi X1 PRN SEE COMMENTS Tranexamic Acid 1,000 mg in 100 mls @ 200 mls/hr 03/25/24 22:28 Tranexamic Acid Ivpb IV PRNMRX1 PRN BLEEDING Oxytocin/Sodium Chloride 20 unit in 1,000 mls @ 125 mls/hr 03/25/24 22:30 03/27/24 06:32 Pitocin 20 Units In Ns IV 04/24/24 22:29 Infused .Q8H UBALDO Infusion Lactated Ringer's 1,000 mls @ 100 mls/hr 03/26/24 18:15 Lactated Ringers IV 04/25/24 18:14 .Q10H UBALDO Magnesium Hydroxide 30 ml 03/26/24 06:29 Milk Of Magnesia Susp 30 Ml Udc PO 04/25/24 06:28 PRNMRX1 PRN CONSTIPATION Measles/Mumps/Rubella Vaccine Live 0.5 ml 03/26/24 06:29 Measles, Mumps & Rubella Vacc 0.5 Ml Vial SCi X1 PRN if non-immune or equivocal Methylergonovine Maleate 0.2 mg 03/26/24 06:53 Methylergonovine Inj 0.2 Mg/Ml Vial IM 04/02/24 06:52 Q6HR PRN Excessive bleeding Methylergonovine Maleate 0.2 mg 03/26/24 06:29 Methylergonovine 0.2 Mg Tablet PO 04/02/24 06:28 Q6HR PRN Excessive bleeding Misoprostol 800 mcg 03/25/24 22:28 Misoprostol 200 Mcg Tablet KS X1 PRN BLEEDING Ondansetron HCl 4 mg 03/26/24 06:29 Ondansetron Inj 2 Mg/Ml Inj 2 Ml IV 04/25/24 06:28 Q6H PRN NAUSEA OR VOMITING Oxytocin 10 unit 03/25/24 22:28 Oxytocin Inj 10 Unit/Ml Vial IM X1 PRN After placenta delivers Potassium Chloride 20 meq 03/27/24 08:00 03/27/24 08:25 Potassium Chloride 20 Meq Tabcr PO 04/26/24 07:59 20 meq WBR UBALDO Administration Simethicone 80 mg 03/26/24 06:29 Simethicone 80 Mg Chew PO 04/25/24 06:28 Q4HR PRN GAS Plan 33-year-old female A1 with no significant past medical history who was admitted to L&D on 03/25/2024 underwent normal spontaneous vaginal delivery of a male single at 39 weeks, which was complicated by retained placenta requiring manual extraction, uterine curettage, uterine atony, and hemorrhage. On 03/26/2024 patient was found to have potassium 2.4 and hospitalist team was consulted for continued management of hypokalemia and cardiac monitoring. #Hypokalemia- resolved #Hypomagnesemia- resolved -On labs 03/26/2024 K 2.4, Mag 1.2, repeat K 2.9 and Mag 1.6 -Patient has received so far 4 gm IV magnesium, 80 mEq PO potassium and 50 mEq IV potassium. -Telemetry shows normal sinus rhythm with rate in the 70s. -AM potassium eas 3.4 , we ordered 20 of po potasium -Mag of 2 -Will continue to monitor and repleate electrolyte as needed # day 1 #Postoperative day 1 s/p manual placental removal, uterine curettage, and Bakri balloon placement #Acute blood loss anemia -Continue management per administrative and program specialist Thank you for allowing us to participate in the care of this patient. Patient plan of care was discussed with the attending physician Dr Reynaga, Garrett Long MD,PGY-3 Attending Provider Attestation/Addendum I have examined the patient, reviewed labs and imaging findings, discussed the case with the resident(s), and reviewed entered orders. I agree with the plan of care as outlined in this note. Dr. Reynaga
--- NOTE | 2024-03-27 16:24 | PC.CC ---
SS referral for pt Rona White, 33 yr old female with hx of depression following miscarriage at 21 weeks. From RN report pt transferred back to OB from Tele. ASW met wit pt at bedside. ASW introduced self and role in pt care. ASW explained reason for encounter and limitations of confidentiality. Pt expressed understanding. Pt noted to be alert and oriented to person, place and situation. Pt keeps eye contact for duration of encounter and speaks in clear even tone. Pt presents with normal affect. At this time pt denies SI/HI-pt denies any hx of A/VH. At time of encounter pt is noted to be bonding with male infant and is attentive to needs. Pt confirmed a period of 5 months of depression following miscarriage of her first child at 21 weeks. Pt expressed feelings of extreme guilt when she got again with her second child. Pt reports following the of second child all symptoms subsided. Per pt during her time of depression she did not access traditional services. Pt reports accessing support from her family and extended buddhist fiends. Pt expressed understanding signs and symptoms of depression (). Per pt she knows that she can follow up with her OBGYN if signs and symptoms appear. Pt states knowing how to access traditional services if needed. Pt reports this is her second child, with a 2 yr old at home in care of her spouse and family. Pt reports that at time of D/c [facility] [phone] will provide transport to couples residence at [address] [place] [address]. Per pt she has a lot of family support. Per pt she has all needs for infants D/c home. Pt is connected wit Medicare and [employer]. Pt is receiving disability benefits. Pt receives WIC and SNAP. Pt has declined further resources at this time. Pt denies any hx of substance use. Pt denies any involvement with CWS. Pt denies any hx of DV.
[2024-03-27 18:06] LABS: Basophils % (Auto) 0 % (0-2.5); Eosinophils # (Auto) 0.1 Thou/mm3 (0.0-0.5); Eosinophils % (Auto) 1 % (0-10); Hematocrit 30.4 % (36.0-46.0); Hemoglobin 10.6 g/dL (12.0-16.0); Immature Granulocytes % (Auto) 1 % (0-0); Immature Granulocytes Auto 0.05 Thou/mm3 (0.00-0.00); Lymphocytes # (Auto) 2.1 Thou/mm3 (1.0-4.8); Lymphocytes % (Auto) 20 % (10-50); Mean Corpuscular HGB Conc 34.9 g/dl (31.0-37.0); Mean Corpuscular Hemoglobin 30.5 pg (25.0-35.0); Mean Corpuscular Volume 88 fL (80-100); Monocytes # (Auto) 0.5 Thou/mm3 (0.0-0.8); Monocytes % (Auto) 5 % (0-12); Neutrophils # (Auto) 7.6 Thou/mm3 (1.8-7.7); Neutrophils % (Auto) 73 % (37-80); Nucleated Red Blood Cell % 0 /100 WBC (0); Platelet Count 177 Thou/mm3 (140-440); RDW Standard Deviation 43.8 fL (36.4-46.3); Red Blood Count 3.47 Miln/mm3 (4.00-5.20); White Blood Count 10.3 Thou/mm3 (3.6-11.0)
[2024-03-27 18:13] LABS: Potassium 3.2 mMol/L (3.4-5.1)
[2024-03-27] MEDS: CALCIUM CARBONATE 600 MG TABLET PO (19:24)
[2024-03-27 19:33] VITALS: BP 118/79; PULSE 76; RESP 17; TEMP 36.7; O2SAT 98
[2024-03-28] MEDS: POTASSIUM CHL 10 mEq IVPB 10 MEQ/100 ML BAG 100 MEQ IV (01:30)
[2024-03-28 02:38] VITALS: BP 128/77; PULSE 76; RESP 17; TEMP 37; O2SAT 96
[2024-03-28 06:27] LABS: Magnesium 1.5 mg/dL (1.6-2.6); Potassium 3.2 mMol/L (3.4-5.1)
[2024-03-28 08:06] VITALS: BP 117/75; PULSE 68; RESP 18; TEMP 36.6; O2SAT 97
[2024-03-28] MEDS: CALCIUM CARBONATE 600 MG TABLET PO (08:15)
[2024-03-28] MEDS: POTASSIUM CHLORIDE 20 mEq TABCR PO (08:16)
--- NOTE | 2024-03-28 08:33 | ESPR_ITS ---
RE: LIS GARCIA : 1990 DATE OF SERVICE: 03/28/2024 S: day #3, the patient denies any problem or complaints. She denies any muscle spasms. She denies any palpitations. She denies any excessive vaginal bleeding. She denies any shortness of breath, dizziness, lightheadedness, or chest pain. Bakri balloon was removed yesterday and she has had no significant bleeding since it was removed. She has been undergoing potassium supplementation and magnesium supplementation. O: Vital Signs: Blood pressure 128/77, heart rate 76, respirations 17, temperature is 98.6, and pulse ox is 96% on room air. Lungs: Clear to auscultation bilaterally. Heart: Regular rate and rhythm. Abdomen: Fundus is firm, nontender. Labs: Hemoglobin is 10.6, white blood cell count is 10.3. Potassium is 3.2, and magnesium is 1.5. A 1. day #3, status post spontaneous vaginal delivery. 2. Postop day #2, status post manual placental removal, uterine curettage, and Bakri balloon placement, status post removal of Bakri balloon. 3. Remains borderline hypokalemic and hypomagnesemic. P: Discharge home on oral potassium and magnesium supplementation. Followup in the office in 6 weeks. Discharge instructions given. DT: 07:27:45 TT: 08:32:00 Ref: [id number] - TID: [id number]
[2024-03-28] MEDS: MAGNESIUM OXIDE 400 MG TABLET PO (09:18)
[2024-03-28] MEDS: POTASSIUM CHLORIDE 20 mEq TABCR 40 MEQ PO (09:19)
--- NOTE | 2024-03-28 09:25 | ESHP_ITS ---
RE: LIS GARCIA : 1990 DATE OF ADMISSION: 03/25/2024 This is a 33-year-old 3, para 2-0-0-2 with due date of 04/01 with intrauterine at 39 weeks and 0 days, who went to labor and delivery complaining of leaking fluid and contractions and is noted to be 7.5 cm. The patient's care was complicated by incompetent cervix, for which she received a cervical cerclage on 09/27. She underwent cervical cerclage removal in the office on 03/11. She denies any bleeding. ALLERGIES: NO KNOWN DRUG ALLERGIES. MEDICATIONS: multivitamin 1 p.o. daily. PAST MEDICAL HISTORY: Mild developmental delay, incompetent cervix, rubella nonimmune, appendicitis. PAST SURGICAL HISTORY: Appendectomy, cervical cerclage placement and removal. SOCIAL HISTORY: She denies any alcohol, drug use or smoking. FAMILY HISTORY: Denies. OBSTETRIC HISTORY: In 2020, 21-week normal vaginal delivery, female , complicated by demise and retained placenta, who underwent a manual placenta removal and uterine curettage; 10/2021, 39-week normal vaginal delivery, 7-llhvw-2-ounce female, complicated by premature cervical shortening at 24 weeks. REVIEW OF SYSTEMS: She denies any chest pain, palpitations, cough, fever, shortness of breath or lower extremity pain. PHYSICAL EXAMINATION: VITAL SIGNS: Blood pressure is 110/70, heart rate 88, respirations 18, temperature is 98.6. HEENT: Oropharynx and sclerae are clear. LUNGS: Clear to auscultation bilaterally. HEART: Regular rate and rhythm. ABDOMEN: Gravid, consistent with estimated weight 7-1/2 pounds. PELVIC: See RN nodes. EXTREMITIES: Nontender. SKIN: No rashes or lesion. NEUROLOGIC: No focal deficit. ASSESSMENT AND PLAN: Intrauterine at 39 weeks. Active labor, anticipate spontaneous vaginal delivery. Informed consent was obtained. The patient was made aware of the risks, complications, alternatives and benefits of the proposed procedure and she agrees. She is aware of the risk of operative vaginal delivery and delivery and agrees with these modes of delivery if indicated. DT: 22:36:39 TT: 23:42:00 Ref: [id number] - TID: [id number] MTDD
--- NOTE | 2024-03-28 09:29 | ESPR_ITS ---
<Statement entered by Garrett Long MD - 03/28/24 16:00> I discussed with and supervised my co-resident involved in the care of this patient. I agree with the assessment and plan as documented above. Garrett Long,PGY-3 Disclaimer: Despite multiple revisions, due to the dictation software being used, the document below may not be free of grammatical errors including phonetic/typographic errors. However, this does not deter from our commitment to providing health care in the patient's best interest in mind. Documentation for date of: 03/28/24 Subjective Subjective Interval history: Patient seen at bedside this morning. No overnight events. Patient's potassium was 3.2 and magnesium 1.5 today. Gave magnesium oxide 400 mg x 1 and gave additional 60 mEq of potassium in the morning. Patient will be discharged by [facility] [employer]. No other complaints at this time. Exam Vital Signs Temp Pulse Resp BP Pulse Ox O2 Del Method O2 Flow Rate 98 F 68 18 117/75 97 Room Air 4 03/28/24 08:06 03/28/24 08:06 03/28/24 08:06 03/28/24 08:06 03/28/24 08:06 03/28/24 08:06 03/28/24 08:06 Narrative Exam General: A/O x3, no acute distress, well-nourished, well-developed Eyes: PERRL, EOMI. Anicteric, vision grossly intact. Ears: No ear pain, no ear discharge, Hearing grossly intact. Nose: No nasal discharge. Mouth/Throat: Moist mucous membranes, no redness, no lesions. Neck: Neck supple, non-tender, no cervical lymphadenopathy. Lungs: Clear JENNY to auscultation and percussion, No accessory muscle use. Cardio: Normal S1/S2, regular rhythm, no murmurs, no JVD Abdomen: Soft, non-tender, no palpable masses, peristalsis present, no guarding or rebound. Extremities: Symmetrical, no significant deformities, no peripheral edema , non-tender, peripheral pulses presents. Skin: No rashes, no lesions, warm to touch. Neuro: No focal neurological deficits. motor and sensory intact Psych: Cooperative, appropriate mood and effect. Objective Labs 03/27/24 17:56 03/28/24 05:02 Labs: Laboratory Results - last 24 hr 03/27/24 03/28/24 17:56 05:02 WBC 10.3 RBC 3.47 L Hgb 10.6 L Hct 30.4 L MCV 88 MCH 30.5 MCHC 34.9 RDW Std Deviation 43.8 Plt Count 177 D Neut % (Auto) 73 Lymph % (Auto) 20 [place] % (Auto) 5 Eos % (Auto) 1 Baso % (Auto) 0 Neut # (Auto) 7.6 Lymph # (Auto) 2.1 [place] # (Auto) 0.5 Eos # (Auto) 0.1 Baso # (Auto) 0.0 Immature Gran # (Auto) 0.05 H Absolute Nucleated RBC 0.00 Immature Gran % 1 H Nucleated RBC % 0 Potassium 3.2 L 3.2 L Magnesium 1.5 L Quality Measures Quality Measures VTE prophylaxis Assessment & Plan Assessment Current Active Medications: Generic Name Dose Route Start Last Admin Trade Name Freq PRN Reason Stop Dose Admin Acetaminophen 325 mg 03/26/24 06:29 Acetaminophen 325 Mg Tablet PO 04/25/24 06:28 Q4HR PRN Patient rated pain 1 to 2 Acetaminophen 650 mg 03/26/24 06:29 Acetaminophen 325 Mg Tablet PO 04/25/24 06:28 Q6HR PRN Patient rated pain of 3 Benzocaine 1 spray 03/25/24 22:28 03/26/24 00:12 Benzo/Lano/Aloe (Dermoplast) 60 Gm Can TOP 04/24/24 22:27 1 can PRN PRN Administration PERINEAL DISCOMFORT Calcium Carbonate 600 mg 03/27/24 17:45 03/28/24 08:15 Calcium Carbonate 600 Mg Tablet PO 04/26/24 17:44 600 mg QDAY UBALDO Administration Cyclobenzaprine HCl 5 mg 03/26/24 17:59 Cyclobenzaprine 5 Mg Tablet PO 04/25/24 17:58 TID PRN MUSCLE SPASMS Diphenoxylate HCl/Atropine 1 tab 03/26/24 02:22 Diphenoxylate/Atrop Sulf 1 Tab PO 04/25/24 02:21 Q6HR PRN Diarrhea Diphtheria/Tetanus/Acell Pertussis 0.5 ml 03/26/24 06:29 Diphth,Pertuss(Acell),Tet Vac 0.5 Ml Vial IMi X1 PRN SEE COMMENTS Tranexamic Acid 1,000 mg in 100 mls @ 200 mls/hr 03/25/24 22:28 Tranexamic Acid Ivpb IV PRNMRX1 PRN BLEEDING Oxytocin/Sodium Chloride 20 unit in 1,000 mls @ 125 mls/hr 03/25/24 22:30 03/27/24 06:32 Pitocin 20 Units In Ns IV 04/24/24 22:29 Infused .Q8H UBALDO Infusion Lactated Ringer's 1,000 mls @ 100 mls/hr 03/26/24 18:15 Lactated Ringers IV 04/25/24 18:14 .Q10H UBALDO Magnesium Hydroxide 30 ml 03/26/24 06:29 Milk Of Magnesia Susp 30 Ml Udc PO 04/25/24 06:28 PRNMRX1 PRN CONSTIPATION Measles/Mumps/Rubella Vaccine Live 0.5 ml 03/26/24 06:29 Measles, Mumps & Rubella Vacc 0.5 Ml Vial SCi X1 PRN if non-immune or equivocal Methylergonovine Maleate 0.2 mg 03/26/24 06:53 Methylergonovine Inj 0.2 Mg/Ml Vial IM 04/02/24 06:52 Q6HR PRN Excessive bleeding Methylergonovine Maleate 0.2 mg 03/26/24 06:29 Methylergonovine 0.2 Mg Tablet PO 04/02/24 06:28 Q6HR PRN Excessive bleeding Misoprostol 800 mcg 03/25/24 22:28 Misoprostol 200 Mcg Tablet PA X1 PRN BLEEDING Ondansetron HCl 4 mg 03/26/24 06:29 Ondansetron Inj 2 Mg/Ml Inj 2 Ml IV 04/25/24 06:28 Q6H PRN NAUSEA OR VOMITING Oxytocin 10 unit 03/25/24 22:28 Oxytocin Inj 10 Unit/Ml Vial IM X1 PRN After placenta delivers Potassium Chloride 20 meq 03/28/24 08:00 03/28/24 08:16 Potassium Chloride 20 Meq Tabcr PO 04/27/24 07:59 20 meq BIDWM UBALDO Administration Simethicone 80 mg 03/26/24 06:29 Simethicone 80 Mg Chew PO 04/25/24 06:28 Q4HR PRN GAS Plan 33-year-old female with no relevant past medical history was admitted to labor and delivery on 03/25/2024 she underwent spontaneous vaginal delivery of a male, single , but was complicated by placenta retention which required manual extraction/urine curettage/uterine atony and hemorrhage. #Electrolyte imbalance #Hypokalemia #Hypomagnesemia ?Potassium 3.2 and magnesium 1.5 today Plan: ? Magnesium oxide 400 mg x 1 ? 60 mEq of potassium x 1 today. ? Replete as necessary # day 2 #Postop day 1 s/p manual placental removal, uterine curettage, and Bakri balloon placement #Acute blood loss anemia ? Continue management as per [employer] Thank you for allowing us to be part of the patient's care, Internal medicine team. Case disclosed with Attending Dr. Reynaga and My senior Dr. Long PGY3. Devendra Bauman PGY1 Attending Provider Attestation/Addendum I have examined the patient, reviewed labs and imaging findings, discussed the case with the resident(s), and reviewed entered orders. I agree with the plan of care as outlined in this note. Dr. Reynaga
[2024-03-28 11:25] VITALS: BP 121/78; PULSE 66; RESP 18; TEMP 36.7; O2SAT 98
== END 2024-03-28 14:30 | disposition home or self-care (01) | DRG 768 ==
LOC: S4SX 03-26 01:05 → S4NX 03-26 06:41 → S2NX 03-26 21:56 → S4NX 03-27 10:12
PROVIDERS: Student in an Organized Health Care Education/Training Program; Admitting Provider Specialist; Visit Provider Student in an Organized Health Care Education/Training Program
PROC: 10E0XZZ Delivery of Products of Conception, External Approach (ICD-10-PCS; CPT 58120; principal; 2024-03-26 01:30)
DX: O77.0 Labor and delivery complicated by meconium in amniotic fluid (principal); Z37.0 Single live birth; O72.0 Third-stage hemorrhage; D62 Acute posthemorrhagic anemia; Z3A.39 39 weeks gestation of pregnancy; O99.284 Endocrine, nutritional and metabolic diseases complicating childbirth; E87.6 Hypokalemia; E83.42 Hypomagnesemia; O90.81 Anemia of the puerperium
CPT/HCPCS: 36415; 80053; 83735; 84132; 85025; 86780; 86850; 86900; 86901; 86923; 93005; A4217; J0689; J0690; J1100; J2210; J2371; J2590; J2704; J2765; J3010; J3475; J3480; J3490; P9016; S0191; A9270